=== PATIENT | female | born 1970 | race Caucasian/White ===

== ENCOUNTER 2018-10-21 08:54 | Emergency (ER) | payer SELFPAY ==
[2018-10-21] MEDS ORDERED: Proparacaine 0.5% Opth 15 ML BOT ONE (09:18)
[2018-10-21] MEDS ORDERED: Fluorescein Opthalmic Strip ONE (09:18)
== END 2018-10-21 10:27 | disposition home or self-care (01) ==
LOC: ERS 08:54
DX: S05.02XA Injury of conjunctiva and corneal abrasion without foreign body, left eye, initial encounter (principal); F17.210 Nicotine dependence, cigarettes, uncomplicated; E10.9 Type 1 diabetes mellitus without complications; Z86.73 Personal history of transient ischemic attack (TIA), and cerebral infarction without residual deficits; X58.XXXA Exposure to other specified factors, initial encounter
CPT/HCPCS: 99283